=== PATIENT | female | born 1935 | race Caucasian/White ===

== ENCOUNTER → 2016-03-31 | Outpatient (CLI) | payer MEDICARE ==
[~2016-03-31] MED LIST: ANALGESIC325 M1 PO; DILAUDID2 MG PO; HYDROMORPHONE HC2 MG PO; LEVOTHROID,S0.088 MG PO; LIDODERM 5% P1 PATCH TD; LITE COAT ASPI325 M1 PO; LOPRESSOR25 MG PO; ONE DAILY1 EAC3 PO; PRINZIDE 20-251 EACH PO; SYNTHROID88 MCG PO; TYLENOL EXTRA500 MG PO; ZESTRIL,PRINIVI40 M1 PO; ZESTRIL40 MG PO; ZOCOR80 MG PO
== END | disposition home or self-care (01) ==
LOC: CDC 08:31
DX: R94.31 Abnormal electrocardiogram [ECG] [EKG] (principal); R00.1 Bradycardia, unspecified
CPT/HCPCS: 93000

== ENCOUNTER → 2017-04-29 | Outpatient (CLI) | payer OTHER, MEDICARE ==
[2017-04-29 09:52] LABS: CREATININE 0.8 mg/dL (0.6-1.3); GFR ESTIMATE (CALCULATED) > 59 mL/min/
[2017-04-29 09:53] LABS: UREA NITROGEN (BUN) 25 mg/dL (9-23)
== END | disposition home or self-care (01) ==
LOC: RAD 08:23
PROVIDERS: Internal Medicine Cardiovascular Disease
DX: Z01.812 Encounter for preprocedural laboratory examination (principal)
CPT/HCPCS: 71275; 82565; 84520